=== PATIENT | male | born 1990 | race Caucasian/White ===

== ENCOUNTER 2016-10-18 20:01 | Emergency (ER) | payer SELFPAY ==
[~2016-10-18] VITALS: Ht 172.7 cm; Wt 54.5 kg
[2016-10-18] MEDS ORDERED: HALOPERIDOL 5 MG/ML VIAL (J1630) IM STA (20:05)
[2016-10-18] MEDS ORDERED: diphenhydrAMINE INJ 50MG/ML VIAL (J1200) IM STA (20:05)
[2016-10-18 20:53] LABS: MEAN CORPUSCULAR HEMOGLOBIN 31.4 pg (27.0-33.0); MEAN CORPUSCULAR HGB CONC 32.8 g/dl (32.0-36.5); MEAN CORPUSCULAR VOLUME 95.9 fl (80.0-96.0); RED CELL DISTRIBUTION WIDTH 12.4 % (11.5-14.5)
[2016-10-18 21:07] LABS: ALBUMIN 4.6 GM/DL (3.2-5.2); ALBUMIN/GLOBULIN RATIO 1.39 (1.00-1.93); ALKALINE PHOSPHATASE 70 U/L (45-117); ALT/SGPT 20 U/L (12-78); ANION GAP 19 MEQ/L (8-16); AST/SGOT 18 U/L (15-37); BILIRUBIN,DIRECT 0.1 MG/DL (0.0-0.2); BILIRUBIN,TOTAL 0.5 MG/DL (0.2-1.0); BLOOD UREA NITROGEN 12 MG/DL (7-18); CALCIUM LEVEL 9.4 MG/DL (8.5-10.1); CARBON DIOXIDE LEVEL 18 MEQ/L (21-32); CHLORIDE LEVEL 105 MEQ/L (98-107); CREATININE FOR GFR 1.29 MG/DL (0.70-1.30); GLOMERULAR FILTRATION RATE > 60.0 (>60); GLUCOSE, FASTING 85 MG/DL (70-105); POTASSIUM SERUM 4.2 MEQ/L (3.5-5.1); SODIUM LEVEL 142 MEQ/L (136-145); TOTAL PROTEIN 7.9 GM/DL (6.4-8.2)
[2016-10-18 21:08] LABS: METHADONE URINE NEGATIVE (NEGATIVE)
[2016-10-19] MEDS ORDERED: HALOPERIDOL 5 MG/ML VIAL (J1630) IM STA (03:07)
[2016-10-19] MEDS ORDERED: diphenhydrAMINE INJ 50MG/ML VIAL (J1200) IM ONE (03:15)
[2016-10-19 03:53] VITALS: BP 111/64
== END 2016-10-19 03:58 ==
LOC: EDBD 20:01 → M ED 20:01
DX: R45.851 Suicidal ideations (principal); F91.8 Other conduct disorders
CPT/HCPCS: 80048; 80076; 80307; 82550; 84443; 85027; 96372; 99285; G0480; J1200; J1630